=== PATIENT | female | born 1985 | race Caucasian/White ===

== ENCOUNTER 2021-09-27 05:19 | Inpatient (IN) ==
[2021-09-27] MEDS ORDERED: CARBOPROST TROMETHAMINE 250 MCG/ML AMP IM PRN (05:45)
[2021-09-27] MEDS ORDERED: miSOPROStoL 200 MCG TABLET RECTAL PRN (05:45)
[2021-09-27] MEDS ORDERED: CITRIC ACID/SODIUM CITRATE 30 ML UDCUP PO ONE (05:45)
[2021-09-27] MEDS ORDERED: METHYLERGONOVINE 0.2 MG/1 ML AMP IM PRN (05:45)
[2021-09-27] MEDS ORDERED: OXYTOCIN/LR 20 UNIT/1,000 ML BAG IV ONE ×5 (05:45→17:16)
[2021-09-27] MEDS ORDERED: TRANEXAMIC ACID 1,000 MG in SODIUM CHLORIDE 0.9% 100 ML IV PRN (05:45)
[2021-09-27] MEDS ORDERED: ceFAZolin 2,000 MG/50 ML DUPLEX IV ONE (05:45)
[2021-09-27 06:13] LABS: Basophils # 0.1 10*3/uL (0.0-0.2); Basophils % 0.6 % (0.0-0.8); Eosinophils # 0.1 10*3/uL (0.0-0.87); Eosinophils % 0.8 % (0.00-10.9); Hematocrit 35.2 VOL% (35.7-47.0); Hemoglobin 11.2 GM/DL (12.0-16.0); Immature Granulocytes % 4.3 %; Immature Granulocytes Absolute 0.63 #; Lymphocytes # 2.5 10*3/uL (1.4-4.0); Mean Corpuscular HGB Conc 31.8 GM/DL (32-36); Mean Corpuscular Volume 76.7 FL (87-102); Mean Platelet Volume 9.5 FL (9.6-12.0); Monocytes % 8.6 % (1.7-12.7); Neutrophils % 68.7 % (38.7-73.9); Platelet Count 302 T/CUMM (130-400); Red Blood Count 4.59 MC/CUMM (3.8-5.5); Red Cell Distribution Width 15.2 % (9.3-17.3); White Blood Count 14.5 T/CUMM (4-12)
[2021-09-27 06:32] LABS: Alanine Aminotransferase 15 U/L (13-56); Albumin 2.6 G/DL (3.4-5.0); Alkaline Phosphatase 166 U/L (45-117); Aspartate Amino Transferase 15 U/L (0-37); Bilirubin,Total < 0.39 MG/DL (0.20-1.00); Blood Urea Nitrogen 8 MG/DL (7-18); Carbon Dioxide 20 MMOL/L (21-32); Eosinophils 1 % (0-10); Estimated Glom Filtration Rate 127 ML/MIN; Glucose 83 MG/DL (74-106); Lymphocytes 24 % (20-55); Osmolality,Calculated 271.7 MOS/KG (273-304); Platelet Estimate Adequate; Potassium 3.8 MMOL/L (3.5-5.1); Segmented Neutrophils 70 % (50-85); Sodium 138 MMOL/L (136-145); Total Cells Counted 100; Total Protein 7.1 G/DL (6.4-8.2)
[2021-09-27 06:33] LABS: Hypochromia Slight; Microcytosis Slight
[2021-09-27] MEDS ORDERED: LACTATED RINGERS 1,000 ML IV ONE (07:36)
[2021-09-27] MEDS ORDERED: TRANEXAMIC ACID 1,000 MG/10 ML VIAL ONE (07:46)
[2021-09-27] MEDS ORDERED: miSOPROStoL 200 MCG TABLET ONE (07:46)
[2021-09-27] MEDS ORDERED: SODIUM CHLORIDE 0.9% 0 ML IV ONE (07:47)
[2021-09-27] MEDS ORDERED: FAMOTIDINE 20 MG/2 ML VIAL IV ONE (07:52)
[2021-09-27] MEDS ORDERED: KETOROLAC 30 MG/1 ML VIAL ONE (11:08)
[2021-09-27] MEDS ORDERED: buprenorphine HCL 0.3 MG/ML VIAL ONE (11:08)
[2021-09-27] MEDS ORDERED: ACETAMINOPHEN INJ 1,000 MG/100 ML VIAL IV ONE (11:08)
[2021-09-27] MEDS ORDERED: ONDANSETRON 4 MG/2 ML VIAL ONE (11:08)
[2021-09-27] MEDS ORDERED: PHENYLEPHRINE 1 MG/10 ML SYRINGE IV ONE ×3 (11:08→12:19)
[2021-09-27] MEDS: LACTATED RINGERS 1,000 ML IV SCH ×2 (11:42→18:31)
[2021-09-27] MEDS ORDERED: MIDAZOLAM 2 MG/2 ML VIAL ONE (12:29)
[2021-09-27 12:33] LABS: Cord Arterial Blood HCO3 23.2 MMOL/L
[2021-09-27 12:34] LABS: Cord Venous Blood HCO3 23.5 MMOL/L; Cord Venous Blood PCO2 42.2 MMHG; Cord Venous Blood PO2 30.5 MMHG
[2021-09-27] MEDS ORDERED: ePHEDrine 50 MG/ML VIAL ONE (13:18)
[2021-09-27] MEDS: ePHEDrine 50 MG/ML VIAL IV PRN ×3 (14:18→14:56)
[2021-09-27] MEDS ORDERED: ALBUMIN 5% 12.5 GM/250 ML VIAL IV ONE (14:51)
[2021-09-27] MEDS ORDERED: MEASLES/MUMPS/RUBELLA VACCINE 0.5 ML VIAL SUBCUT ONE (17:16)
[2021-09-27] MEDS ORDERED: HYDROCORTISONE 2.5% RECTAL CREAM 30 GM TUBE TOP PRN (17:16)
[2021-09-27] MEDS ORDERED: RHO(D) IMMUNE GLOBULIN 300 MCG SYRINGE IM ONE (17:16)
[2021-09-27] MEDS ORDERED: oxyCODONE/ACETAMINOPHEN 5-325 MG TABLET PO PRN (17:16)
[2021-09-27] MEDS ORDERED: ONDANSETRON 4 MG/2 ML VIAL IV PRN (17:16)
[2021-09-27] MEDS ORDERED: BENZOCAINE 20%/MENTHOL 0.5% SPRAY 56 GM CAN TOP PRN (17:16)
[2021-09-27] MEDS ORDERED: LANOLIN 50% CREAM 0.3 OZ TUBE TOP PRN (17:16)
[2021-09-27] MEDS ORDERED: ACETAMINOPHEN 325 MG TABLET PO PRN (17:16)
[2021-09-27] MEDS ORDERED: DIPH/TET/ACEL PERT BOOSTER VACCINE 0.5 ML VIAL IM ONE (17:16)
[2021-09-27] MEDS ORDERED: BISACODYL 10 MG SUPP RECTAL PRN (17:16)
[2021-09-27] MEDS ORDERED: WITCH HAZEL PADS 100/JAR TOP PRN (17:16)
[2021-09-27] MEDS: IBUPROFEN 800 MG TABLET PO PRN (20:44)
[2021-09-27] MEDS: DOCUSATE SODIUM 100 MG CAPSULE PO SCH (20:44)
[2021-09-27] MEDS: oxyCODONE/ACETAMINOPHEN 5-325 MG TABLET PO PRN (20:48)
[2021-09-27] MEDS: KETOROLAC 30 MG/1 ML VIAL IV SCH (23:58)
[2021-09-27] MEDS: ACETAMINOPHEN 500 MG TABLET PO SCH (23:59)
[2021-09-28] MEDS: IBUPROFEN 800 MG TABLET PO PRN ×2 (06:15→15:14)
[2021-09-28] MEDS: ACETAMINOPHEN 500 MG TABLET PO SCH (06:15)
[2021-09-28 06:17] LABS: Basophils # 0.1 10*3/uL (0.0-0.2); Basophils % 0.4 % (0.0-0.8); Eosinophils # 0.1 10*3/uL (0.0-0.87); Eosinophils % 0.9 % (0.00-10.9); Hematocrit 25.8 VOL% (35.7-47.0); Hemoglobin 8.1 GM/DL (12.0-16.0); Immature Granulocytes % 2.8 %; Immature Granulocytes Absolute 0.31 #; Lymphocytes # 1.8 10*3/uL (1.4-4.0); Lymphocytes % 15.8 % (21.3-54.2); Mean Corpuscular HGB Conc 31.4 GM/DL (32-36); Mean Corpuscular Volume 77.9 FL (87-102); Mean Platelet Volume 10.3 FL (9.6-12.0); Monocytes % 9.1 % (1.7-12.7); Platelet Count 223 T/CUMM (130-400); Red Blood Count 3.31 MC/CUMM (3.8-5.5); Red Cell Distribution Width 15.4 % (9.3-17.3); White Blood Count 11.3 T/CUMM (4-12)
[2021-09-28] MEDS: LACTATED RINGERS 1,000 ML IV SCH (06:20)
[2021-09-28] MEDS: KETOROLAC 30 MG/1 ML VIAL IV SCH ×2 (06:20→13:42)
[2021-09-28] MEDS: DOCUSATE SODIUM 100 MG CAPSULE PO SCH ×2 (09:40→21:33)
[2021-09-28] MEDS: oxyCODONE/ACETAMINOPHEN 5-325 MG TABLET PO PRN ×2 (13:17→15:14)
[2021-09-29 07:18] VITALS: BP 101/65
[2021-09-29] MEDS: DOCUSATE SODIUM 100 MG CAPSULE PO SCH (08:00)
[2021-09-29] MEDS: oxyCODONE/ACETAMINOPHEN 5-325 MG TABLET PO PRN (08:00)
[2021-09-29] MEDS: IBUPROFEN 800 MG TABLET PO PRN (08:00)
== END 2021-09-29 12:14 | disposition home or self-care (01) | DRG 788 ==
LOC: N.LD 05:19 → N.OB 17:19
PROVIDERS: ADMIT Specialist; ATTEND Specialist
PROC: LDCSECT (ICD-10-PCS; 2021-09-27 12:00)